=== PATIENT | male | born 1970 | race Caucasian/White ===

== ENCOUNTER 2016-12-25 16:43 | Observation (INO) | payer BC ==
[~2016-12-25] VITALS: Ht 185.4 cm; Wt 136.3 kg
[2016-12-25 18:02] VITALS: BP 123/86; PULSE 80; TEMP 98.6
[2016-12-25] MEDS ORDERED: PRINZIDE 25 MG-1 TAB PO (18:10)
[2016-12-25] MEDS ORDERED: ASPIRIN 81M81 MG/TA2 PO (18:11)
[2016-12-25 19:11] VITALS: BP 133/82; PULSE 76; TEMP 97.4
[2016-12-25] MEDS ORDERED: ZANAFLEX 4MG TAB4 MG (20:17)
[2016-12-25 22:24] LABS: BASO # 0.1 (0.0-0.2); BASO % 0.8 % (0.0-2.0); EOS # 0.2 (0.0-0.7); GRAN # 4.8 (1.4-6.5); GRAN % 50.3 % (42.2-75.2); HEMOGLOBIN 16.5 g/dl (13.5-18.0); LYMPH # 3.2 (1.2-3.4); LYMPH % 33.8 % (20.0-51.0); MEAN CELL VOLUME 82 fl (80.0-100.0); MEAN CORPUSCULAR HEMOGLOBIN 28 pg (27.0-31.0); MEAN CORPUSCULAR HGB CONC 34 g/dl (33.0-37.0); MEAN PLATELET VOLUME 9.8 fl (7.4-10.4); MONO # 1.2 (0.1-0.6); MONO % 12.4 % (1.7-9.3); PLATELET COUNT 254 K/mm3 (130-400); RED BLOOD COUNT 5.95 M/mm3 (4.20-5.60); WHITE BLOOD COUNT 9.5 K/mm3 (4.8-10.8)
[2016-12-25 23:08] LABS: ADJUSTED CALCIUM 9.3 mg/dL (8.4-10.2); ALANINE AMINOTRANSFERASE 33 U/L (21-72); ALBUMIN 4.5 gm/dL (3.5-5.0); ALKALINE PHOSPHATASE 69 U/L (50-136); ANION GAP 17 mmol/L (7-16); BILIRUBIN,TOTAL 0.9 mg/dL (0.0-1.0); BLOOD UREA NITROGEN 17 mg/dL (9-20); CALCIUM 9.7 mg/dL (8.4-10.2); CARBON DIOXIDE 25 mmol/L (22-30); CHLORIDE 96 mmol/L (98-107); CREATININE, serum 0.94 mg/dL (0.66-1.25); GLUCOSE 76 mg/dL (74-106); POTASSIUM 3.7 mmol/L (3.4-5.0); SODIUM 138 mmol/L (137-145); TOTAL PROTEIN 7.8 gm/dL (6.4-8.2)
[2016-12-25 23:18] LABS: B-TYPE NATRIURETIC PEPTIDE 12 pg/mL (0-125)
[2016-12-25 23:25] LABS: TROPONIN-I < 0.012 ng/mL (0.000-0.034)
[2016-12-25 23:46] VITALS: BP 155/72; PULSE 92; TEMP 98.6
[2016-12-26] VITALS (12 sets, daily range): BP systolic 97–148; BP diastolic 61–89; PULSE 64–78; TEMP 97.7–973.9
[2016-12-26 12:48] LABS: HEMATOCRIT 51.5 % (42.0-52.0); HEMOGLOBIN 17.2 g/dl (13.5-18.0); MEAN CELL VOLUME 83 fl (80.0-100.0); MEAN CORPUSCULAR HEMOGLOBIN 28 pg (27.0-31.0); MEAN CORPUSCULAR HGB CONC 33 g/dl (33.0-37.0); MEAN PLATELET VOLUME 9.8 fl (7.4-10.4); PLATELET COUNT 269 K/mm3 (130-400); RED BLOOD COUNT 6.22 M/mm3 (4.20-5.60)
[2016-12-26 13:03] LABS: CALCIUM 9.4 mg/dL (8.4-10.2); CREATININE, serum 0.95 mg/dL (0.66-1.25); POTASSIUM 4.2 mmol/L (3.4-5.0); PROTHROMBIN TIME 11.5 SECONDS (9.7-12.8)
[2016-12-26 13:06] LABS: PARTIAL THROMBOPLASTIN TIME 37.1 SECONDS (26.0-37.0)
[2016-12-26] MEDS ORDERED: LIPITOR 10MG10 MG PO (17:51)
== END 2016-12-26 18:55 | disposition home or self-care (01) ==
LOC: MEDICAL 16:43
PROVIDERS: Family Medicine; Internal Medicine Interventional Cardiology
DX: I25.110 Atherosclerotic heart disease of native coronary artery with unstable angina pectoris (principal); I10 Essential (primary) hypertension; E66.9 Obesity, unspecified; E78.5 Hyperlipidemia, unspecified; F17.220 Nicotine dependence, chewing tobacco, uncomplicated
CPT/HCPCS: 99222-AI; C1760; G0378; J1650; J2250; J3010; Q9967